=== PATIENT | female | born 1965 | race Caucasian/White ===

== ENCOUNTER 2018-04-27 07:25 | Day surgery (SDC) | payer BC ==
[2018-04-27] MEDS ORDERED: LIDOCAINE 2% MDV (20MG/ML) 20ML VIAL IV ONE (07:26)
[2018-04-27] MEDS ORDERED: PROPOFOL 10 MG/ML VIAL IV ONE (07:26)
--- NOTE | 2018-04-30 09:40 | Operative Note ---
DATE OF SURGERY: 04/27/18 SURGEON: Lakshmi Martin MD OPERATION: ESOPHAGOGASTRODUODENOSCOPY. INDICATIONS: This is a 52-year-old female with history of intermittent episodes of dysphagia who presented for esophagogastroduodenoscopy. POSTOPERATIVE DIAGNOSIS: Normal esophagus, stomach, and duodenum with no specific strictures, status post biopsies to rule out eosinophilic esophagitis and status post dilation with Montgomery dilator size 60-Portuguese. ANESTHESIA: Sedation is per Anesthesia. Pulse oximetry was monitored throughout the procedure to maintain O2 saturation of 90% or greater. Supplemental oxygen was administered via nasal cannula. Cardiac and vital signs were monitored throughout the duration of the procedure, and they were stable. The procedure of esophagogastroduodenoscopy and risks and benefits of the procedure, including the risk of bleeding and perforation, among others, were explained to the patient who voiced understanding and agreed to have the procedure done. Physical examination was performed, and the patient was found stable for sedation. PROCEDURE: The patient was placed in the left lateral position. Sedation was initiated. A plastic bite block was inserted into the oral cavity. The Olympus [id number] gastroscope was introduced into the oral cavity and advanced to the proximal esophagus without difficulty. The esophageal mucosa was carefully examined upon introduction of the gastroscope. The proximal and mid and distal esophageal mucosa appeared normal. The gastroscope was then advanced into the stomach, and surveillance of the stomach revealed normal stomach and duodenum with no ulcerations noted. The gastroscope was then withdrawn into the stomach and retroflexion was performed. There was no hiatal hernia or any other lesion noted. The gastroscope was then straightened and withdrawn while carefully examining the gastric and esophageal mucosa. No other lesions noted. Multiple mid esophageal biopsies were obtained. The patient remained with stable vital signs. A Montgomery dilator size 60-Portuguese was then used to dilate the esophagus with no immediate complications. She remained with stable vital signs and was transferred to the recovery room. RECOMMENDATIONS: 1. The patient is to continue on her proton pump inhibitors. 2. I would be happy to see her back as needed in the office. Thank you for allowing me to participate in the care of your patient. CC: Xavier ZELAYA
== END 2018-04-27 08:20 | disposition home or self-care (01) ==
LOC: HOP 07:25
PROVIDERS: ATTEND Internal Medicine Gastroenterology
DX: Z87.19 Personal history of other diseases of the digestive system (principal); K21.9 Gastro-esophageal reflux disease without esophagitis

== ENCOUNTER 2018-07-08 13:18 | Emergency (ER) | payer BC ==
[2018-07-08] MEDS ORDERED: ASPIRIN 81 MG CHEWABLE TABLET PO ONE (13:36)
--- NOTE | 2018-07-08 13:41 | Emergency Department Record ---
History of Present Illness - General Chief complaint: Extremity Problem Stated complaint: JAW/LT ARM PAIN Time Seen by Provider: 07/08/18 13:33 Source: Patient, RN notes reviewed Mode of Arrival: Ambulatory - History of Present Illness Initial comments: patient presents with left arm numbness started yesterday and she has had some pain in the trapzius muscle area and cervical spine area on the left side of her her neck and shoulder. No chest pain and she has had jaw pain for several months and she has seen a dentist and trying to decide on it it is grinding of her teeth. PMH hypertension which is new three weeks ago and she was started on losartan. 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 Patient anxious about her left arm and tearful. Onset/Timin -: Days(s) Location: Left, Arm Quality: Other Consistency: Constant Improves with: Nothing Worsens with: Nothing - Related Data Home Medications Medication Instructions Recorded Confirmed Last Taken Losartan Potassium 25 mg PO DAILY 07/08/18 07/08/18 Unknown Pantoprazole Sodium [Protonix] 40 mg PO DAILY 07/08/18 07/08/18 Unknown Previous Rx's Medication Instructions Recorded Naproxen [Naprosyn] 500 mg PO BID #30 tablet 07/08/18 Allergies Allergy/AdvReac Type Severity Reaction Status Date / Time acetaminophen [From Vicodin] Allergy VOMITING Verified 12/01/13 19:42 hydrocodone bitartrate Allergy VOMITING Verified 12/01/13 19:42 [From Vicodin] Latex, Natural Rubber Allergy RASH Verified 12/01/13 19:42 Sulfa (Sulfonamide Allergy VOMITING Verified 12/01/13 19:42 Antibiotics) Travel Screening - Travel/Exposure Within Last 30 Days Have you traveled within the last 30 days?: No Review of Systems Reviewed: No additional complaints except as noted below Constitutional: Reports: As per HPI. Denies: Chills, Fever, Malaise, Night sweats, Weakness, Weight change Eyes: Reports: As per HPI. Denies: Eye discharge, Eye pain, Photophobia, Vision change ENT: Reports: As per HPI. Denies: Congestion, Dental pain, Ear pain, Epistaxis , Hearing loss, Throat pain Respiratory: Reports: As per HPI. Denies: Cough, Dyspnea, Hemoptysis, Stridor, Wheezes Cardiovascular: Reports: As per HPI. Denies: Arrhythmia, Chest pain, Dyspnea on exertion, Edema, Murmurs, Orthopnea, Palpitations, Paroxysmal nocturnal dyspnea, Rheumatic Fever, Syncope Endocrine: Reports: As per HPI. Denies: Fatigue, Heat or cold intolerance, Polydipsia, Polyuria Gastrointestinal: Reports: As per HPI. Denies: Abdominal pain, Constipation, Diarrhea, Hematemesis, Hematochezia, Melena, Nausea, Vomiting Genitourinary: Reports: As per HPI. Denies: Abnormal menses, Discharge, Dyspareunia, Dysuria, Frequency, Hematuria, Incontinence, Retention, Urgency Musculoskeletal: Reports: As per HPI, Neck pain, Other (left arm numbness). Denies: Arthralgia, Back pain, Gout, Joint swelling, Myalgia Skin: Reports: As per HPI. Denies: Bruising, Change in color, Change in hair/ nails, Lesions, Pruritus, Rash Neurological: Reports: As per HPI. Denies: Abnormal gait, Confusion, Headache, Numbness, Paresthesias, Seizure, Tingling, Tremors, Vertigo, Weakness Psychiatric: Reports: As per HPI. Denies: Anxiety, Auditory hallucinations, Depression, Homicidal thoughts, Suicidal thoughts, Visual hallucinations Hematological/Lymphatic: Reports: As per HPI. Denies: Anemia, Blood Clots, Easy bleeding, Easy bruising, Swollen glands Past Medical History - SOCIAL HISTORY Smoking Status: Never smoker - RESPIRATORY Hx Respiratory Disorders: No - CARDIOVASCULAR Hx Cardio Disorders: No - NEURO Hx Neuro Disorders: Yes Hx Headaches: Yes Hx of Migraines: Yes (none recently) Comment:: ct of brain 2017 r/t [facility] - GI Hx GI Disorders: Yes Hx Abdominal Pain: Yes Hx Nausea/Vomiting: Yes - Hx Genitourinary Disorders: Yes Hx Kidney Stones: Yes (2008) - ENDOCRINE Hx Endocrine Disorders: No - MUSCULOSKELETAL Hx Musculoskeletal Disorders: Yes Hx Arthritis: Yes (L5/S1) Hx Back Injury: Yes (ruptured by chiropractor) Comment:: L5/S1 ruptured - PSYCH Hx Psych Problems: No - HEMATOLOGY/ONCOLOGY Hx Hematology/Oncology Disorders: No Family Medical History Any Significant Family History?: Yes Hx Cancer: Brother/Sister *Cancer Comment: acute neutrophilic leukemia Hx Heart Disease: Mother *Heart Comment: pacemaker Physical Exam - General General Appearance: Alert, Oriented x3, Cooperative, No acute distress - Head Head exam: Normal inspection - Eye Eye exam: Normal appearance, PERRL Pupils: Normal accommodation - ENT ENT exam: Normal exam, Mucous membranes moist, Normal external ear exam, Normal orophraynx, TM's normal bilaterally Ear exam: Normal external inspection. negative: External canal tenderness Nasal Exam: Normal inspection. negative: Discharge, Sinus tenderness Mouth exam: Normal external inspection, Tongue normal Teeth exam: Normal inspection. negative: Dental caries Throat exam: Normal inspection. negative: Tonsillar erythema, Tonsillar exudate - Neck Neck exam: Normal inspection, Full ROM. negative: Tenderness - Respiratory Respiratory exam: Normal lung sounds bilaterally. negative: Respiratory distress - Cardiovascular Cardiovascular Exam: Regular rate, Normal rhythm, Normal heart sounds - GI/Abdominal GI/Abdominal exam: Soft, Normal bowel sounds. negative: Tenderness - Rectal Rectal exam: Deferred - exam: Deferred - Extremities Extremities exam: Normal inspection, Full ROM, Normal capillary refill, Other ( numbness in the left arm, left shoulder and left neck pain on palpation). negative: Tenderness - Back Back exam: Reports: Normal inspection, Full ROM. Denies: Muscle spasm, Rash noted, Tenderness - Neurological Neurological exam: Alert, Normal gait, Oriented X3, Reflexes normal - Psychiatric Psychiatric exam: Normal affect, Normal mood - Skin Skin exam: Dry, Intact, Normal color, Warm Course - Reevaluation(s) Reevaluation #1: 07/08/18 15:13 patient is feeling better Reevaluation #2: I recommended to the patient to see Dr. Tillman and have a outpatient stress test to check her heart with exercise and to only do normal activity till that is done. 07/08/18 15:16 Medical Decision Making - Data Complexity MDM Data: Labs Ordered and/or Reviewed (trop negative), X-Ray Ordered and/or Reviewed (neg chest and cervical spine) - Lab Data Result diagrams: 07/08/18 13:35 07/08/18 13:35 Disposition Clinical Impression: Radiculopathy affecting upper extremity Cervical strain, acute Qualifiers: Encounter type: initial encounter Qualified Code(s): S16.1XXA - Strain of muscle, fascia and tendon at neck level, initial encounter Disposition: Home, Self-Care Condition: (1) Good Instructions: Cervical Radiculopathy (ED) Additional Instructions: follow up with Dr. Tillman in 2 days as scheduled Prescriptions: Naproxen [Naprosyn] 500 mg PO BID #30 tablet Forms: Patient Portal Access Time of Disposition: 15:18 Quality - Quality Measures Quality Measures: N/A - Blood Pressure Screening Does Patient Have Any of the Following: No, Active Dx of HTN Blood Pressure Classification: Hypertensive Reading Systolic Measurement: 160 Diastolic Measurement: 97 Screening for High Blood Pressure: Patient Exclusion, Hx of HTN [[id number]]
[2018-07-08 13:45] LABS: BASO % 0.7 % (0-6); EOS % 2.4 % (0-6); GRAN % 61.9 % (47-80); LYMPH % 28.1 % (16-45); MEAN CELL VOLUME 93.7 fl (81-97); MEAN CORPUSCULAR HEMOGLOBIN 30.5 pg (27-33); MEAN CORPUSCULAR HGB CONC 32.6 g/dl (32-36); MEAN PLATELET VOLUME 10.7 fl (7.4-10.4); MONO % 6.9 % (0-9); PLATELET COUNT 311 K/uL (130-400); RED BLOOD COUNT 4.91 M/uL (3.80-5.40); RED CELL DISTRIBUTION WIDTH 14.4 % (11.5-14.5); WHITE BLOOD COUNT W/O DIFF 5.8 K/uL (4.2-12.2)
[2018-07-08] MEDS ORDERED: LORAZEPAM 2 MG/ML VIAL IV ONE (13:51)
[2018-07-08] MEDS ORDERED: KETOROLAC 30 MG/ML VIAL IVP ONE (13:51)
[2018-07-08 13:57] LABS: BLOOD UREA NITROGEN 15 mg/dL (6-20); CREATININE 0.7 mg/dL (0.5-0.9); EST GLOMERULAR FILTRATION RATE > 60 mL/min
[2018-07-08 14:00] LABS: GLUCOSE,RANDOM 105 mg/dL (74-109)
--- NOTE | 2018-07-09 14:37 | RADIOLOGY REPORT ---
EXAM: CHEST, TWO VIEWS HISTORY: PAIN. TECHNIQUE: Two views of the chest were obtained. Comparison: None. FINDINGS: The cardiac silhouette is within normal size limits. No focal pulmonary consolidation. No pleural effusion or pneumothorax. Suggestion of a calcified granuloma in the right upper lobe. An additional rounded opacity superimposing the posterior lateral right fifth rib is noted, appearance suggestive of an external telemetry lead. IMPRESSION: NO ACUTE LUNG FINDINGS. JOB NUMBER: [id number] [facility]TDD
--- NOTE | 2018-07-09 14:40 | RADIOLOGY REPORT ---
EXAM: CERVICAL SPINE HISTORY: NECK PAIN, LEFT ARM RADICULOPATHY. TECHNIQUE: Five views of the cervical spine were obtained. Comparison: None. FINDINGS: The vertebral body heights and alignment are maintained. Right C5- C6 neural foramen appears slightly narrowed related to the facet joint osteophytes. No significant left neural foramen narrowing is evident. Minimal anterior end plate osteophytes art multiple levels. Mild disk space height loss at C5-C6. IMPRESSION: OVERALL MILD CERVICAL SPINE DEGENERATIVE FINDINGS WITH SUGGESTION OF UNDERLYING DISK DEGENERATION ON C5-C6. JOB NUMBER: [id number] [facility]
== END 2018-07-08 15:37 | disposition home or self-care (01) ==
LOC: ER 13:18
DX: S16.1XXA Strain of muscle, fascia and tendon at neck level, initial encounter (principal); M54.12 Radiculopathy, cervical region; R68.84 Jaw pain; M25.512 Pain in left shoulder; I10 Essential (primary) hypertension; X58.XXXA Exposure to other specified factors, initial encounter
CPT/HCPCS: 99284 ×2; 96374; 96375; 85025; 85730; 80048; 84484; 71046; 72050; 93005; 93010; J1885; J2060